=== PATIENT | male | born 1980 | race Caucasian/White ===

== ENCOUNTER 2019-01-29 13:40 | Emergency (ER) | payer MEDICAID ==
[~2019-01-29] VITALS: Ht 162.6 cm; Wt 108.9 kg
[2019-01-29 13:46] VITALS: BP 146/87; Ht 162.6 cm; Wt 108.9 kg
== END 2019-01-29 14:41 | disposition home or self-care (01) ==
LOC: ED 13:40
DX: H92.02 Otalgia, left ear (principal)

== ENCOUNTER 2019-02-17 15:11 | Emergency (ER) | payer MEDICAID ==
[~2019-02-17] VITALS: Ht 167.6 cm; Wt 108.6 kg
[2019-02-17 15:19] VITALS: Ht 167.6 cm; Wt 108.6 kg
[2019-02-17 18:55] VITALS: BP 131/91
== END 2019-02-17 18:55 | disposition home or self-care (01) ==
LOC: ED 15:11
DX: L50.9 Urticaria, unspecified (principal)
CPT/HCPCS: J1200; J2930

== ENCOUNTER 2019-03-01 17:36 | Emergency (ER) | payer MEDICAID ==
[~2019-03-01] VITALS: Ht 162.6 cm; Wt 110.2 kg
[2019-03-01 17:59] VITALS: Ht 162.6 cm; Wt 110.2 kg
[2019-03-01 20:48] VITALS: BP 132/76
== END 2019-03-01 20:48 | disposition home or self-care (01) ==
LOC: ED 17:36
DX: S20.211A Contusion of right front wall of thorax, initial encounter (principal); W01.0XXA Fall on same level from slipping, tripping and stumbling without subsequent striking against object, initial encounter; Y93.89 Activity, other specified; Y92.89 Other specified places as the place of occurrence of the external cause; Y99.8 Other external cause status
CPT/HCPCS: J1885